=== PATIENT | female | born 1970 | race American Indian/Alaskan Native ===

== ENCOUNTER 2017-04-08 07:13 | Emergency (ER) | payer SELFPAY ==
[2017-04-08] MEDS ORDERED: NACL 0.9% 1000 ML 1,000 ML IV ONE (10:59)
[2017-04-08] MEDS ORDERED: MOTRIN PO ONE (10:59)
[2017-04-08] MEDS ORDERED: TESSALON PERLES PO ONE (10:59)
--- NOTE | 2017-04-08 12:23 | XRay Report ---
ROUTINE CHEST, TWO VIEWS: HISTORY: Cough. The trachea, heart, mediastinal contour, lung suazo and bony thorax are unremarkable. IMPRESSION: Unremarkable chest x-ray.
--- NOTE | 2017-04-08 12:48 | Emergency Department Report ---
- General Chief Complaint: Upper Respiratory Infection Stated Complaint: BODY ACHES FLU SYMPTOMS Time Seen by Provider: 04/08/17 10:58 Source: patient Mode of arrival: Ambulatory Limitations: No Limitations - History of Present Illness Initial Comments: This is a 47-year-old female nontoxic, well nourished in appearance, no acute signs of distress presents to the ED with c/o of cough, rhinorrhea, fever, body aches, chills 2 days. Patient describes cough as dry mucous production. Patient denies any chest pain, short of breath, difficult breathing, nausea, vomiting, wheezing, back pain, headache, stiff neck, numbness or tingling. Patient denies any calf pain or calf tenderness. Patient denies hemoptysis. Denies long car rides, recent hospital stays, or recent travels. Patient denies any allergies. Patient denies significant past medical history. MD Complaint: fever, cough, rhinorrhea, nasal congestion, other (body aches) -: days(s) (2) Severity: mild Severity scale (0 -10): 8 Quality: aching Consistency: constant Improves With: nothing Worsens With: nothing Associated Symptoms: fever, chills, rhinorrhea, nasal congestion, cough. denies : myalgias, diaphoresis, headache, sore throat, stiff neck, chest pain, shortness of breath, abdominal pain, nausea, vomiting, diarrhea, dysuria, rash, confusion, right sweats, weight loss, epistaxis, hoarseness, ear pain Treatments Prior to Arrival: none - Related Data Previous Rx's Medication Instructions Recorded Last Taken Type Benzonatate [Tessalon Perle] 100 mg PO Q6H PRN #20 capsule 04/08/17 Unknown Rx Ibuprofen [Motrin] 600 mg PO Q8H PRN #30 tablet 04/08/17 Unknown Rx Oseltamivir [Tamiflu] 75 mg PO BID #14 cap 04/08/17 Unknown Rx Allergies Allergy/AdvReac Type Severity Reaction Status Date / Time No Known Allergies Allergy Unverified 04/08/17 07:29 ED Review of Systems ROS: Stated complaint: BODY ACHES FLU SYMPTOMS Other details as noted in HPI Constitutional: chills, fever Eyes: denies: eye pain, eye discharge, vision change ENT: denies: ear pain, throat pain Respiratory: cough. denies: shortness of breath, wheezing Cardiovascular: denies: chest pain, palpitations Endocrine: no symptoms reported Gastrointestinal: denies: abdominal pain, nausea, diarrhea Genitourinary: denies: urgency, dysuria, discharge Musculoskeletal: denies: back pain, joint swelling, arthralgia Skin: denies: rash, lesions Neurological: denies: headache, weakness, paresthesias Psychiatric: denies: anxiety, depression Hematological/Lymphatic: denies: easy bleeding, easy bruising ED Past Medical Hx - Past Medical History Previous Medical History?: Yes - Surgical History Past Surgical History?: Yes Additional Surgical History: Tubaligation - Social History Smoking Status: Never Smoker Substance Use Type: Alcohol, Non Opiate Pain - Medications Home Medications: Home Medications Medication Instructions Recorded Confirmed Last Taken Type Benzonatate [Tessalon Perle] 100 mg PO Q6H PRN #20 capsule 04/08/17 Unknown Rx Ibuprofen [Motrin] 600 mg PO Q8H PRN #30 tablet 04/08/17 Unknown Rx Oseltamivir [Tamiflu] 75 mg PO BID #14 cap 04/08/17 Unknown Rx ED Physical Exam - General Limitations: No Limitations General appearance: alert, in no apparent distress - Head Head exam: Present: atraumatic, normocephalic, normal inspection - Eye Eye exam: Present: normal appearance, PERRL, EOMI. Absent: scleral icterus, conjunctival injection, nystagmus, periorbital swelling, periorbital tenderness Pupils: Present: normal accommodation - ENT ENT exam: Present: normal exam, normal orophraynx, mucous membranes moist, TM's normal bilaterally, normal external ear exam - Neck Neck exam: Present: normal inspection, full ROM. Absent: tenderness, meningismus, lymphadenopathy, thyromegaly - Respiratory Respiratory exam: Present: normal lung sounds bilaterally. Absent: respiratory distress, wheezes, rales, rhonchi, stridor, chest wall tenderness, accessory muscle use, decreased breath sounds, prolonged expiratory - Cardiovascular Cardiovascular Exam: Present: regular rate, normal rhythm, normal heart sounds. Absent: irregular rhythm, systolic murmur, diastolic murmur, rubs, gallop - GI/Abdominal GI/Abdominal exam: Present: soft, normal bowel sounds. Absent: distended, tenderness, guarding, rebound, rigid, diminished bowel sounds - Rectal Rectal exam: Present: deferred - Extremities Exam Extremities exam: Present: normal inspection, full ROM, normal capillary refill. Absent: tenderness, pedal edema, joint swelling, calf tenderness - Back Exam Back exam: Present: normal inspection, full ROM. Absent: tenderness, CVA tenderness (R), CVA tenderness (L), muscle spasm, paraspinal tenderness, vertebral tenderness, rash noted - Neurological Exam Neurological exam: Present: alert, oriented X3, CN II-XII intact, normal gait, reflexes normal - Psychiatric Psychiatric exam: Present: normal affect, normal mood - Skin Skin exam: Present: warm, dry, intact, normal color. Absent: rash ED Course Vital Signs 04/08/17 07:29 Temperature 99.9 F H Pulse Rate 111 H Respiratory 20 Rate Blood Pressure 128/81 O2 Sat by Pulse 98 Oximetry - Reevaluation(s) Reevaluation #1: 04/08/17 12:51 Patient is speaking in full sentences with no signs of distress noted. ED Medical Decision Making - Medical Decision Making This is a 47-year-old female presents with a positive influenza A. Patient is stable and was examined by me. Chest x-ray has been obtained and dictated by radiologist with normal exam. He is notified of x-ray results were negative by the patient. Influenza AB obtained and positive for a period she received 1 L of normal saline and Motrin which patient states symptoms of body aches is improving and are subsided. Patient discharged with Tamiflu, Tessalon Perles, and Motrin for fever. Patient was instructed to increase hydration and rest. Patient was instructed Follow-up with a primary care doctor in 3-5 days or if symptoms worsen and continue return to emergency room as soon as possible. At time time of discharge, the patient does not seem toxic or ill in appearance. No acute signs of distress noted. Patient agrees to discharge treatment plan of care. No further questions noted by the patient. Critical care attestation.: If time is entered above; I have spent that time in minutes in the direct care of this critically ill patient, excluding procedure time. ED Disposition Clinical Impression: Influenza A Disposition: DC-01 TO HOME OR SELFCARE Is pt being admited?: No Does the pt Need Aspirin: No Condition: Stable Additional Instructions: Follow-up with a primary care doctor in 3-5 days or if symptoms worsen and continue return to emergency room as soon as possible. Increase hydration and rest. Take Motrin as prescribed for the fever episodes. Prescriptions: Benzonatate [Tessalon Perle] 100 mg PO Q6H PRN #20 capsule PRN Reason: cough Ibuprofen [Motrin] 600 mg PO Q8H PRN #30 tablet PRN Reason: Fever Oseltamivir [Tamiflu] 75 mg PO BID #14 cap Referrals: PRIMARY CARE, [Primary Care Provider] - 3-5 Days TABITHA JORGENSEN MD [Staff Physician] - 3-5 Days [facility] [Outside] - 3-5 Days [facility] [Outside] - 3-5 Days Forms: Work/School Release Form(ED)
[2017-04-08 13:08] VITALS: BP 115/76
== END 2017-04-08 13:22 | disposition home or self-care (01) ==
LOC: ED 07:13
DX: J09.X2 Influenza due to identified novel influenza A virus with other respiratory manifestations (principal); R11.2 Nausea with vomiting, unspecified; Z98.51 Tubal ligation status
CPT/HCPCS: 71046; 87400; 96360; 99283; J7030

== ENCOUNTER 2018-04-08 17:46 | Emergency (ER) | payer SELFPAY | END 2018-04-08 18:00 | disposition left against medical advice (07) | LOC: ED 17:46 ==

== ENCOUNTER 2018-04-13 07:17 | Emergency (ER) | payer SELFPAY ==
[2018-04-13 07:39] VITALS: BP 134/87
--- NOTE | 2018-04-13 08:10 | Emergency Department Report ---
ED Abdominal Pain HPI - General Chief Complaint: Abdominal Pain Stated Complaint: COUGHING/ECTOPIC PREG Time Seen by Provider: 04/13/18 08:03 Source: patient Mode of arrival: Ambulatory Limitations: No Limitations - Related Data Previous Rx's Medication Instructions Recorded Last Taken Type Benzonatate [Tessalon Perle] 100 mg PO Q6H PRN #20 capsule 04/13/18 Unknown Rx Sulfamethoxazole/Trimethoprim 1 each PO BID #6 tablet 04/13/18 Unknown Rx [Bactrim DS TAB] Allergies Allergy/AdvReac Type Severity Reaction Status Date / Time No Known Allergies Allergy Unverified 04/08/17 07:29 ED Review of Systems ROS: Stated complaint: COUGHING/ECTOPIC PREG Other details as noted in HPI Comment: All other systems reviewed and negative Constitutional: denies: chills, fever Eyes: denies: eye pain ENT: denies: ear pain Respiratory: see HPI, cough Cardiovascular: denies: palpitations Endocrine: denies: flushing Gastrointestinal: as per HPI, abdominal pain (llq). denies: nausea Genitourinary: as per HPI, abnormal menses. denies: urgency, dysuria, frequency, hematuria, discharge Musculoskeletal: denies: back pain Skin: denies: rash Neurological: denies: headache ED Past Medical Hx - Past Medical History Previous Medical History?: No - Surgical History Past Surgical History?: Yes Additional Surgical History: Tubaligation - Social History Smoking Status: Never Smoker Substance Use Type: None - Medications Home Medications: Home Medications Medication Instructions Recorded Confirmed Last Taken Type Benzonatate [Tessalon Perle] 100 mg PO Q6H PRN #20 capsule 04/13/18 Unknown Rx Sulfamethoxazole/Trimethoprim 1 each PO BID #6 tablet 04/13/18 Unknown Rx [Bactrim DS TAB] ED Physical Exam - General Limitations: No Limitations General appearance: alert - Head Head exam: Present: atraumatic - Eye Eye exam: Present: normal appearance, PERRL Pupils: Present: normal accommodation - Neck Neck exam: Present: normal inspection - Respiratory Respiratory exam: Present: normal lung sounds bilaterally - Cardiovascular Cardiovascular Exam: Present: regular rate, normal rhythm - GI/Abdominal GI/Abdominal exam: Present: soft, normal bowel sounds. Absent: distended, tenderness, guarding, rebound, rigid, diminished bowel sounds, hyperactive bowel sounds, hypoactive bowel sounds, organomegaly, mass - Rectal Rectal exam: Present: deferred - External exam: Present: other (on menses- told me after urinalysis came back when I proceeded to do pelvic) - Extremities Exam Extremities exam: Present: normal inspection, full ROM - Back Exam Back exam: Present: normal inspection, full ROM. Absent: tenderness, CVA tenderness (R), CVA tenderness (L) - Neurological Exam Neurological exam: Present: alert, oriented X3 ED Course Vital Signs 04/13/18 07:35 Temperature 97.7 F Pulse Rate 83 Respiratory 12 Rate Blood Pressure 134/87 O2 Sat by Pulse 99 Oximetry ED Medical Decision Making - Lab Data Result diagrams: 04/13/18 08:17 04/13/18 08:17 - Medical Decision Making pt states irregular menses; she thinks she may have ectopic; discussed menopause ; at bedside; no concern for STI; w no symptoms no n/v/diarrhea; no back pain; no CVA tenderness; no bloody stools urine noted will tx for uti ambulatory taking po afebrile dc home with dc plan of care. Labs 04/13/18 04/13/18 04/13/18 07:49 08:17 08:17 WBC 10.2 RBC 4.22 Hgb 12.8 Hct 38.0 MCV 90 MCH 30 MCHC 34 RDW 14.8 Plt Count 285 Sodium 139 Potassium 4.1 Chloride 101.2 Carbon Dioxide 27 Anion Gap 15 BUN 9 Creatinine 0.6 L Estimated GFR > 60 BUN/Creatinine Ratio 15 Glucose 98 Calcium 8.9 Total Bilirubin 0.20 AST 14 ALT 9 Alkaline Phosphatase 84 Total Protein 7.1 Albumin 3.9 Albumin/Globulin Ratio 1.2 Urine Color Yellow Urine Turbidity Clear Urine pH 6.0 Ur Specific Hunker 1.013 Urine Protein <15 mg/dl Urine Glucose (UA) Neg Urine Ketones Neg Urine Blood Sm Urine Nitrite Neg Urine Bilirubin Neg Urine Urobilinogen < 2.0 Ur Leukocyte Esterase Tr Urine WBC (Auto) 15.0 H Urine RBC (Auto) 7.0 U Epithel Cells (Auto) 1.0 Urine Mucus Few Urine HCG, Qual Negative - Differential Diagnosis uti v sti v ectopic v divertiuclar disease Critical care attestation.: If time is entered above; I have spent that time in minutes in the direct care of this critically ill patient, excluding procedure time. ED Disposition Clinical Impression: UTI (urinary tract infection), Cough, Menses, irregular, Menopausal bleeding Disposition: TO HOME OR SELFCARE Is pt being admited?: No Does the pt Need Aspirin: No Condition: Stable Instructions: Urinary Tract Infection in Women (ED), Cold Symptoms (ED) Additional Instructions: motrin or tylenol for fever meds as ordered today hydrate well with water urinate after sex follow up pcp if persists see referral below Referrals: PRIMARY CARE, [Primary Care Provider] - 3-5 Days KRISTAL CASTELLANOS MD [Staff Physician] - 3-5 Days Time of Disposition: 09:05
[2018-04-13 08:19] LABS: Bilirubin,Urine NEG (Negative); Blood,Urine SM (Negative); Color,Urine Yellow (Yellow); Mucus,Urine FEW /HPF; Protein,Urine <15 mg/dL mg/dL (Negative); Urobilinogen,Urine < 2.0 mg/dL (<2.0)
[2018-04-13 08:20] LABS: HCG Qualitative,Urine Negative (Negative)
[2018-04-13 08:35] LABS: Hemoglobin 12.8 gm/dl (10.1-14.3); Mean Corpuscular HGB Conc 34 % (30-34); Mean Corpuscular Volume 90 fl (79-97); Platelet Count 285 K/mm3 (140-440); Red Blood Count 4.22 M/mm3 (3.65-5.03); Red Cell Distribution Width 14.8 % (13.2-15.2)
[2018-04-13 08:48] LABS: Alanine Aminotransferase 9 units/L (7-56); Albumin 3.9 g/dL (3.9-5); BUN/Creatinine Ratio 15; Blood Urea Nitrogen 9 mg/dL (7-17); Calcium 8.9 mg/dL (8.4-10.2); Hemolysis Index 8
[2018-04-13] MEDS ORDERED: BACTRIM DS PO ONE (09:03)
[2018-04-13] MEDS ORDERED: IBUPROFEN PO ONE (09:04)
== END 2018-04-13 09:30 | disposition home or self-care (01) ==
LOC: ED 07:17
DX: N39.0 Urinary tract infection, site not specified (principal); R05 Cough; N92.6 Irregular menstruation, unspecified; N92.4 Excessive bleeding in the premenopausal period; Z98.51 Tubal ligation status
CPT/HCPCS: 36415; 80053; 81001; 81025; 85027; 99283